=== PATIENT | female | born 1960 | race Caucasian/White ===

== ENCOUNTER 2021-10-21 22:26 | Emergency (ER) | payer OTHER | END 2021-10-22 01:45 | disposition home or self-care (01) | LOC: FER 22:26 | DX: S61.210A Laceration without foreign body of right index finger without damage to nail, initial encounter (principal); M25.531 Pain in right wrist; V49.40XA Driver injured in collision with unspecified motor vehicles in traffic accident, initial encounter; Y92.410 Unspecified street and highway as the place of occurrence of the external cause ==